=== PATIENT | female | born 1950 | race Caucasian/White ===

== ENCOUNTER 2020-07-22 11:19 | Outpatient (CLI) | payer OTHER | END 2020-07-22 11:24 | disposition home or self-care (01) | LOC: SONOGRAMA 11:19 | PROVIDERS: ATTEND Pathology Anatomic Pathology & Clinical Pathology | DX: D34 Benign neoplasm of thyroid gland (principal); E06.5 Other chronic thyroiditis; E04.8 Other specified nontoxic goiter ==